=== PATIENT | male | born 1965 | race Two or more races ===

== ENCOUNTER 2025-03-17 20:20 | Inpatient (IN) | payer OTHER ==
[~2025-03-17] VITALS: Ht 172.7 cm; Wt 95.3 kg
[2025-03-17] MEDS ORDERED: DIPHENHYDRAMINE HCL 50 MG CAPSULE PO STA (23:16)
[2025-03-17 23:22] LABS: BASO % 0.3 % (0.1-1.2); EOS # 0.06 (0.04-0.54); EOS % 0.5 % (0.7-7.0); LYMPH # 0.93 (1.18-3.74); LYMPH % 8.4 % (19.3-53.1); MEAN PLATELET VOLUME 11.30 fl (9.4-12.4); MONO # 0.64 (0.24-0.82); MONO % 5.8 % (4.7-12.5); NEUT # 9.36 (1.56-6.13); NEUT % 84.6 % (34.0-71.1); RED CELL DISTRIBUTION WIDTH 13.6 % (11.6-14.4)
[2025-03-17 23:29] LABS: ALT/SGPT 73.0 U/L (12-78); AST/SGOT 51.0 U/L (15-37); BILIRUBIN TOTAL 1.15 mg/dL (0.3-1.2); BUN CREA RATIO 13.0 (7.0-25.0); CREATININE SERUM 1.2 mg/dL (0.70-1.30); GFR 62.18; GLOBULINA 3.0 G/DL (2.4-3.5); GLUCOSE FASTING 100.0 mg/dL (65-100); OSMOLALITY SERUM 275.0 MOSM/KG (275-295)
[2025-03-17] MEDS ORDERED: DIPHENHYDRAMINE HCL 50 MG/ML VIAL 1ML ONE (23:41)
[2025-03-18 00:49] LABS: URINE APPEARANCE Turbid; URINE BILIRRUBIN Negative (NEGATIVE); URINE BLOOD Negative; URINE COLOR Yellow; URINE EPITHELIAL CELLS 2.4 uL (0.0-38.8); URINE GLUCOSE Negative (NEGATIVE); URINE KETONE Negative (NEGATIVE); URINE LEUKOCYTE Negative; URINE NITRATE Negative; URINE PROTEIN Negative (NEGATIVE); URINE RBC 2.3 uL (0.0-20.8); URINE UROBILINOGEN 0.2 E.U./dl; URINE WBC 5.5 uL (0.0-23.2)
[2025-03-18 01:28] LABS: URINE BACTERIA 3.5 uL (0.0-1933); URINE CAST 0.00 uL (0.0-1.40)
[2025-03-18] MEDS ORDERED: CIPROFLOXACIN IN 5 % DEXTROSE 200 ML IV SCH (03:42)
[2025-03-18] MEDS ORDERED: KETOROLAC TROMETHAMINE 30 MG VIAL IV STA (03:42)
[2025-03-18] MEDS ORDERED: 0.9 % SODIUM CHLORIDE 1,000 ML IV ONE (04:00)
[2025-03-18] MEDS ORDERED: KETOROLAC TROMETHAMINE 30 MG VIAL ONE (04:00)
[2025-03-18] MEDS ORDERED: DEXTROSE 5 %-0.45 % SOD CHLORD 1,000 ML IV SCH (12:00)
[2025-03-18] MEDS ORDERED: ENOXAPARIN SODIUM 40 MG/0.4 ML SYRINGE SUBCUTANEO SCH (12:00)
[2025-03-18] MEDS ORDERED: PIPERACILLIN/TAZOBACTAM SODIUM 3.375 GM in DEXTROSE 5 % IN WATER 100 ML IV SCH (12:00)
[2025-03-18] MEDS ORDERED: MORPHINE SULFATE 4 MG/ML CARTRIDGE IV PRN (12:15)
[2025-03-18] MEDS ORDERED: ENALAPRILAT DIHYDRATE 1.25 MG/ML VIAL IV PRN (12:15)
[2025-03-18] MEDS ORDERED: ACETAMINOPHEN 500 MG GEL..CAP PO PRN (12:15)
[2025-03-18] MEDS ORDERED: ENOXAPARIN SODIUM 40 MG/0.4 ML SYRINGE SUBCUTANEO ONE (14:29)
[2025-03-18] MEDS ORDERED: PIPERACILLIN/TAZOBACTAM SODIUM 3.375 GM VIAL IV ONE (14:30)
[2025-03-18 15:37] VITALS: BP 127/81; O2SAT 97
[2025-03-18 18:36] VITALS: BP 144/92; O2SAT 97
[2025-03-18] MEDS ORDERED: FAMOTIDINE/PF 20 MG in 0.9 % SODIUM CHLORIDE 8 ML IV PUSH SCH (21:00)
[2025-03-19 00:51] VITALS: BP 122/76; O2SAT 98
[2025-03-19 07:15] LABS: BASO % 0.5 % (0.1-1.2); EOS # 0.17 (0.04-0.54); EOS % 2.6 % (0.7-7.0); LYMPH # 1.36 (1.18-3.74); LYMPH % 20.9 % (19.3-53.1); MEAN PLATELET VOLUME 11.30 fl (9.4-12.4); MONO # 0.72 (0.24-0.82); MONO % 11.1 % (4.7-12.5); NEUT # 4.19 (1.56-6.13); NEUT % 64.4 % (34.0-71.1); RED CELL DISTRIBUTION WIDTH 13.5 % (11.6-14.4)
[2025-03-19 07:36] LABS: ERYTHROCYTE SEDIMENTATION RATE 10 mm/hr (0-20)
[2025-03-19 07:55] LABS: ALT/SGPT 73.0 U/L (12-78); AST/SGOT 41.0 U/L (15-37); BILIRUBIN TOTAL 1.07 mg/dL (0.3-1.2); BUN CREA RATIO 10.0 (7.0-25.0); CREATININE SERUM 1.14 mg/dL (0.70-1.30); GFR 65.98; GLOBULINA 2.4 G/DL (2.4-3.5); GLUCOSE FASTING 101.0 mg/dL (65-100); OSMOLALITY SERUM 279.0 MOSM/KG (275-295)
[2025-03-19 08:00] VITALS: BP 125/82; O2SAT 98
[2025-03-19] MEDS ORDERED: LOSARTAN POTASSIUM 25 MG TABLET PO SCH (09:00)
[2025-03-19] MEDS ORDERED: METOPROLOL SUCCINATE 25 MG TAB.SR.24H PO SCH (09:00)
[2025-03-19] MEDS ORDERED: SODIUM CHLORIDE 0.45 % 1,000 ML IV SCH (09:30)
[2025-03-19 16:31] VITALS: BP 148/86
[2025-03-20 01:12] VITALS: BP 173/78; O2SAT 95
[2025-03-20 01:13] VITALS: BP 131/79; O2SAT 96
[2025-03-20] MEDS ORDERED: LOSARTAN POTASS25 MG PO (13:59)
[2025-03-20] MEDS ORDERED: INTESTINEX680 M2 PO (13:59)
[2025-03-20] MEDS ORDERED: TOPROL XL25 M1 PO (13:59)
[2025-03-20] MEDS ORDERED: PEPCID AC20 MG PO (13:59)
== END 2025-03-20 18:40 | disposition home or self-care (01) | DRG 392 ==
LOC: ER 20:20 → SURG 03-18 12:01 → SEC-K 03-18 12:01 → SURG 03-18 16:02
PROVIDERS: Internal Medicine Infectious Disease; Physician Assistant Medical; ADMIT Internal Medicine Geriatric Medicine; ATTEND Internal Medicine Geriatric Medicine
PROC: BW21YZZ Computerized Tomography (CT Scan) of Abdomen and Pelvis using Other Contrast (ICD-10-PCS; principal; 2025-03-17)
PROC: 02HV33Z Insertion of Infusion Device into Superior Vena Cava, Percutaneous Approach (ICD-10-PCS; 2025-03-20)
DX: K57.92 Diverticulitis of intestine, part unspecified, without perforation or abscess without bleeding (principal); D72.829 Elevated white blood cell count, unspecified